=== PATIENT | female | born 2000 | race Hispanic/Latino ===

== ENCOUNTER → 2023-05-04 | Outpatient (CLI) | payer BC, SELFPAY ==
--- NOTE | 2023-05-04 12:00 | RAD_ITS ---
STUDY: X-RAY CHEST REASON FOR EXAM: Female, 22 years old. COUGHING UP BLOOD TECHNIQUE: PA and lateral views of the chest. COMPARISON: None. FINDINGS: Left lower lobe moderate layering effusion with superimposed infiltrate not excluded. There is no demonstrated pleural abnormality. Normal size heart. Normal mediastinum and bailee. Normal visualized pulmonary arteries. Normal visualized aortic arch and descending thoracic aorta. Normal visualized thoracic spine. Nondisplaced fracture along the anterior second rib and posterior fourth, fifth, sixth and seventh ribs. There is no demonstrated abnormality of the visualized soft tissue structures of the upper abdomen. RAD/Chest PA and Lateral IMPRESSION: Multiple left-sided rib fractures with moderate layering effusion with underlying hemothorax not excluded. Consider cross-sectional CT imaging for further assessment and characterization. Electronically Signed: Sammy Mckinney DO at 17:13 EDT ,
== END | disposition home or self-care (01) ==
PROVIDERS: Visit Provider Family Medicine
DX: R04.2 Hemoptysis (principal)
CPT/HCPCS: 71046